=== PATIENT | female | born 1995 | race Two or more races ===

== ENCOUNTER 2023-02-27 10:12 | Emergency (ER) | payer MEDICAID ==
[~2023-02-27] VITALS: Ht 165.1 cm; Wt 68.5 kg
[2023-02-27 10:49] VITALS: BP 120/79; PULSE 103; RESP 18; TEMP 97.8; O2SAT 97
[2023-02-27] MEDS ORDERED: PROCHLORPERAZINE EDISYLATE 5 MG/ML 2ML VIAL IV ONE (11:15)
[2023-02-27] MEDS ORDERED: KETOROLAC TROMETH 30 MG/ML 1ML VIAL IM ONE (11:15)
[2023-02-27] MEDS ORDERED: SODIUM CHLORIDE 0.9% 1,000 ML IV ONE (11:15)
[2023-02-27] MEDS ORDERED: diphenhdrAMINE HCL 50 MG/1 ML VL IV ONE (11:15)
[2023-02-27] MEDS ORDERED: DexAMETHasone SOD PHOS 10MG/1ML VIAL INJ IV ONE (13:15)
== END 2023-02-27 14:01 | disposition home or self-care (01) ==
LOC: ER 10:12
DX: G43.909 Migraine, unspecified, not intractable, without status migrainosus (principal)
CPT/HCPCS: 96361; 96372; 96374; 96375; 99284; J0780; J1100; J1200; J1885; J7030

== ENCOUNTER 2024-10-09 11:20 | Emergency (ER) | payer MEDICAID ==
[~2024-10-09] VITALS: Ht 165.1 cm; Wt 68.0 kg
[2024-10-09 12:17] LABS: Urine Protein, UAD Negative (Negative)
--- NOTE | 2024-10-09 13:03 | ED.PDOC ---
History of Present Illness HPI Comments 29 year old female with a Hx of Migraines presents to the ED for the c/c of a Migraine w/ associated photophobia. This is located to the right temporal region. Patient also notes the headache radiates behind the right orbital region. Pt states that her Migraine has been going on for the past 4x days with no alleviating factors at this time. Pt states that she has tried taking Tylenol and Ativan, but has had no alleviation. Symptoms are currently rated as moderate Denies persistent nausea Denies vomiting Denies thunderclap headache Denies head trauma around the time headache started Denies family history of brain issues persistent headaches Denies taking any blood thinner medication Denies vision/hearing changes Denies focal loss of strength/sensation or changes in speech Chief Complaint: Headache Time Seen by MD: 12:48 Primary Care Provider: FLORENTINO Reviewed Notes: Nurses Notes, Medications, Allergies Allergies: Coded Allergies: NO KNOWN ALLERGIES (Unverified , 02/27/23) Information Source: Patient Mode of Arrival: Ambulatory Severity: Moderate Timing: Days Duration: Since onset, Days Prehospital treatment: None Past Medical History Past Medical History (Other): Migranes Surgical History: Denies all surgeries PLANNING MANAGER History: No Pertinent PLANNING MANAGER History Family History Family History: Reviewed,noncontributory to illness Social History Smoker: Non-Smoker Alcohol: Denies ETOH Use Drugs: Denies Drug Use Lives In: Home Constitutional: denies: chills, diaphoresis, fatigue, fever, malaise, sweats, weakness, others EENTM: denies: blurred vision, double vision, ear bleeding, ear discharge, ear drainage, ear pain, ear ringing, eye pain, eye redness, hearing loss, mouth pain, mouth swelling, nasal discharge, nose bleeding, nose congestion, nose pain, photophobia, tearing, throat pain, throat swelling, voice changes, others Respiratory: denies: cough, hemoptysis, orthopnea, SOB at rest, shortness of breath, SOB with excertion, stridor, wheezing, others Cardiovascular: denies: chest pain, dizzy spells, diaphoresis, Dyspnea on exertion, edema, irregular heart beat, left arm pain, lightheadedness, palpitations, PND, syncope, others Gastrointestinal: denies: abdomen distended, abdominal pain, blood streaked bowels, constipated, diarrhea, dysphagia, difficulty swallowing, hematemesis, melena, nausea, poor appetite, poor fluid intake, rectal bleeding, rectal pain, vomiting, others Genitourinary: denies: abnormal vagina bleeding, burning, dyspareunia, dysuria, flank pain, frequency, hematuria, incontinence, pain, , vagina discharge, urgency, others Neurological: reports: headache; denies: dizziness, fainting, left sided numbness, left sided weakness, numbness, paresthesia, pre-existing deficit, right sided numbness, right sided weakness, seizure, speech problems, tingling, tremors, weakness, others Musculoskeletal: denies: back pain, gout, joint pain, joint swelling, muscle pain, muscle stiffness, neck pain, others Integumetry: denies: bruises, change in color, change in hair/nails, dryness, laceration, lesions, lumps, rash, wounds, others Allergic/Immunocompromised: denies: Difficulty Healing, Frequent Infections, Hives, Itching, others Hematologic/Lymphatic: denies: anemia, blood clots, easy bleeding, easy bruising, swollen glands, others Endocrine: denies: excessive hunger, excessive sweating, excessive thirst, excessive urination, flushing, intolerance to cold, intolerance to heat, unexplained weight gain, unexplained weight loss, others Psychiatric: denies: anxiety, bipolar disorder, depression, hopeless, panic disorder, schizophrenia, sleepless, suicidal, others All Other Systems: Reviewed and Negative Physical Exam General Appearance: Moderate Distress, Normal HEENT: Head (Normocephalic atraumatic), Normal ENT Inspection, Pharynx Normal, TMs Normal Neck: Full Range of Motion, Non-Tender, Normal, Normal Inspection Respiratory: Chest Non-Tender, Lungs Clear, No Accessory Muscle Use, No Respiratory Distress, Normal Breath Sounds Cardiovascular: No Edema, No JVD, No Murmur, No Gallop, Normal Peripheral Pulses, Regular Rate/Rhythm Breast Exam: Deferred Gastrointestinal: Non Tender, No Pulsatile Mass, Normal Bowel Sounds, Soft Genitalia: Deferred Pelvic: Deferred Rectal: Deferred Extremities: No calf tenderness, Normal range of motion, Non-tender, No pedal edema Musculoskeletal : Apperance: Normal Neurologic: Alert, No Motor Deficits, Normal Mood Cerebellar Function: Normal Reflexes: Normal Skin: Dry, Normal Color, Warm Lymphatic: No Adenopathy Was a procedure done? Was a procedure done?: No Differential Dx Considerations may include: See note X-Ray, Labs, Meds, VS Vital Signs Date Time Temp Pulse Resp B/P (MAP) Pulse Ox O2 Delivery O2 Flow Rate FiO2 10/09/24 16:25 97.9 100 18 130/76 (94) 98 97.9 10/09/24 16:25 100 18 98 Room Air 10/09/24 15:16 98.7 79 16 119/77 (91) 100 98.7 10/09/24 15:16 79 18 100 Room Air* 0 21 10/09/24 11:45 98.8 81 16 103/69 (80) 98 98.8 Lab Test 10/09/24 11:57 Range/Units Urine Color Light-yellow Yellow Urine Clarity Clear Clear Urine pH 6.5 5.0-9.0 Urine Specific Lamar 1.013 1.001-1.035 Urine Protein Negative Negative Urine Ketones Negative Negative Urine Blood 2+ H Negative /uL Urine Nitrite Negative Negative Urine Bilirubin Negative Negative Urine Urobilinogen Normal Negative mg/dL Urine Leukocyte Esterase Negative Negative /uL Urine RBC 1 0 - 4 /hpf Urine Microscopic WBC 1 0-5 /HPF Urine Squamous Epithelial Cells Few <5 /hpf Urine Bacteria None seen None Seen /hpf Urine Glucose Normal Normal mg/dL Current Medications Medications (Trade) Dose Ordered Sig/Ortega Route Start Time Stop Time Status Last Admin Sodium Chloride 1,000 ml @ 1,000 mls/hr Q1H ONCE IV 10/09/24 13:00 10/09/24 13:59 DC 10/09/24 15:19 Diphenhydramine HCl (Benadryl Injection) 25 mg ONCE ONCE IV 10/09/24 13:00 10/09/24 13:01 DC 10/09/24 15:17 Prochlorperazine Edisylate (Compazine Inj) 10 mg ONCE ONCE IV 10/09/24 13:00 10/09/24 13:01 DC 10/09/24 15:17 Ketorolac Tromethamine (Toradol Injection) 30 mg ONCE ONCE IV 10/09/24 13:00 10/09/24 13:01 DC 10/09/24 15:18 X-Ray, Labs, Meds, VS Comment 29 year old female with a Hx of Migraines presents to the ED for the c/c of a Migraine w/ associated photophobia. Patient arrives alert and oriented, ABC's intact, afebrile, vital signs stable, saturating well in room air The patients history and physical exam are consistent with a benign headache. Likely migraine Considered subarachnoid hemorrhage however this is less likely given that the patient has had a similar and worst headaches in the past, the lack of trauma, and the slow onset with intermittent symptomatology. Low suspicion of meningitis given the afebrile, well-appearing, and without meningismus on exam. Additionally no history of recent trauma prior to the patient experiencing this headache. Finally, the patient does not report any positional exacerbation with the headaches and has not had a recent spinal procedures therefore my suspicion for central causes and post procedural etiologies of headaches are less likely. Low concern for meningitis as there are no signs of fever, altered mentation nor neck stiffness. Brudzinski/Kernig negative. Low concern for subarachnoid hemorrhage there are no signs of a thunderclap headache Low concern for subdural hematoma and intracranial hemorrhage as there is no history of trauma, progressively worsening headache and neuroexam is unremarkable. Low suspicion for brain tumor as neuroexam is unremarkable. No nausea vomiting. No morning or nocturnal headache. No suspicion for temporal arteritis as there are no signs of fever, muscle wea kness, jaw claudication, no transient visual loss. Given benign exam and history, CT imaging was discussed with the patient and was deferred during this visit. Patient was given: Migraine Cocktail IV _. Tolerated medications with no adverse reaction. Patient was overall well-appearing and hemodynamically stable in the ED. They were able to ambulate and continued to have a nonfocal exam in the emergency department. Discussed continued symptomatic treatment at home. Recommended follow up with PCP. Return precautions to the ED discussed Counseled to start headache diary Recommended headache elimination diet Avoid prolonged periods of fasting Drink plenty of water Exercise daily, limit screen time Aim to sleep 8 to 9 hours per night, practice good hygiene ED precautions given On reevaluation, patient had symptomatic improvement. Patient is stable for discharge at this time. External notes reviewed. Test results and diagnostic imaging interpreted. All diagnostic findings, discharge care, education and instructions provided Follow-up with PCP in 2 to 3 days Patient verbalized understanding and agreed to treatment plan Vital signs stable, afebrile, no acute distress noted Patient ambulatory with strong steady gait Advised to return precautions for any new or worsening symptoms, return to ER immediately for re-evaluation Patient is aware that the purpose of this visit was for an acute medical emergency requiring emergent stabilization. Chronic conditions, including malignancies have not been ruled out. Patient is instructed to follow up with PCP as directed and discharge instructions for continued care and workup. If unable to arrange follow-up, patient is to return to the emergency department for reassessment. Patient (parent or legal guardian if applicable) was given verbal and written discharge instructions and acknowledges understanding. Additional MDM Review of External, Non-ED records: External records reviewed. Discussion with independent historian (EMS, family) history obtained from the patient/parents (if applicable) at bedside Chronic conditions affecting care: None Social determinants of health affecting care: None Time of 1ST Reevaluation: 13:18 Reevaluation 1ST: Unchanged Time of 2ND Reevaluation: 14:20 Reevaluation 2ND: Improved Patient Education/Counseling: Diagnosis, Treatment Family Education/Counseling: No Family Present SEPSIS Sepsis Screen Date sepsis recognized/suspect: Oct 09, 2024 Time Sepsis recognized/suspect: 1145 Recent Procedure: No On Antibiotic Therapy: No Respiratory Rate >20: No Heart Rate >90: No Temp<36 C (96.8 F) or >38.3 C: No SBP <90 or MAP <65 mmHG: No New Acute Mental Status Change: No Is the patient on CPAP, BIPAP,: No Physician Orders Heplock Iv (10/09/24 ) Vital Signs Date Time Temp Pulse Resp B/P (MAP) Pulse Ox O2 Delivery O2 Flow Rate FiO2 10/09/24 16:25 97.9 100 18 130/76 (94) 98 97.9 10/09/24 16:25 100 18 98 Room Air 10/09/24 15:16 98.7 79 16 119/77 (91) 100 98.7 10/09/24 15:16 79 18 100 Room Air* 0 21 10/09/24 11:45 98.8 81 16 103/69 (80) 98 98.8 Departure 1 Departure Time of Disposition: 15:05 Impression: Primary Impression: Migraine Qualified Codes: G43.909 - Migraine, unspecified, not intractable, without status migrainosus Disposition: HOME / SELF CARE / HOMELESS Condition: Stable Discharged With: Self Critical Care Note Critical Care Time?: No Stability Stability form required: No Heart Score Heart Score: Heart Score Response (Comments) Value History N/A 0 EKG N/A 0 Age N/A 0 Risk Factors N/A 0 Troponin N/A 0 Total 0 I personally scribed for STEFANIA HIGH NP ([email or web address]) on 10/09/24 at 13:03. Electronically submitted by Gomez Hooks ([email or web address]). STEFANIA HIGH NP Oct 09, 2024 13:03
[2024-10-09 15:16] VITALS: PULSE 79; RESP 18; O2SAT 100
[2024-10-09] MEDS: PROCHLORPERAZINE EDISYLATE 5 MG/ML 2ML VIAL IV ONE (15:17)
[2024-10-09] MEDS: diphenhdrAMINE HCL 50 MG/1 ML VL IV ONE (15:17)
[2024-10-09] MEDS: KETOROLAC TROMETH 30 MG/ML 1ML VIAL IV ONE (15:18)
[2024-10-09] MEDS: SODIUM CHLORIDE 0.9% 1,000 ML IV ONE (15:19)
[2024-10-09 16:25] VITALS: BP 130/76; PULSE 100; RESP 18; TEMP 97.9; O2SAT 98
== END 2024-10-09 16:34 | disposition home or self-care (01) ==
LOC: ER 11:20
DX: G43.909 Migraine, unspecified, not intractable, without status migrainosus (principal)
CPT/HCPCS: 81001; 96361; 96374; 96375; 99284; J0780; J1200; J1885; J7030